=== PATIENT | male | born 1935 | race Caucasian/White ===

== ENCOUNTER → 2017-02-14 | Day surgery (SDC) | payer MEDICARE ==
[~2017-02-14] MED LIST: ACETAMINOPHEN 1000 MG/100 ML VIAL IV ONE; ASPI81 PO; BILB100C PO; BUPIVACAINE/EPINEPHRINE 0.25% PF 30 ML VIAL ONE; LACTATED RINGER'S 1000 ML INJ 1,000 ML ONE; LIDOCAINE 1%/EPINEPHrine 1:100,000 SOLN 20 ML VIAL ONE; LOSA25TA31 PO; LOVA1TAB47 PO; ONDANSETRON HCL 4 MG/2 ML VIAL IV PUSH ONE; PROPOFOL 100 MG/10 ML INJ IV ONE; PROT40TA PO; SODIUM CHLORIDE 0.9% 250 ML ADDBAG IV ONE; TERA2CAP3 PO; VANCOMYCIN 500 MG VIAL ONE; VANCOMYCIN HCL 1000 MG VIAL ONE
--- NOTE | 2017-02-14 09:28 | TN ---
cc: SYLVIA NEUMANN MD DATE OF SURGERY 02/14/2017 PREOPERATIVE DIAGNOSIS Umbilical hernia. POSTOPERATIVE DIAGNOSIS Umbilical hernia. PROCEDURE Primary repair of umbilical hernia. SURGEON Sylvia Neumann MD ASSISTANCE Staff. SPECIMENS None. ESTIMATED BLOOD LOSS 5 mL. COMPLICATIONS None apparent. PROCEDURE IN DETAIL The patient was taken to the operating room, placed in a supine position. General anesthesia was induced. The abdomen was prepped and draped in the usual sterile fashion and a surgical time-out was performed to verify correct patient, procedure and site. The patient received preoperative vancomycin due to PENICILLIN ALLERGY. Local anesthetic was injected into the skin and subcutaneous tissue inferior to the umbilicus and circumferentially around the umbilicus and a curvilinear infraumbilical incision was made. Dissection was carried out through the subcutaneous tissue with electrocautery. The umbilicus was circumferentially dissected using the hemostat. Using Metzenbaum scissors, the umbilicus was elevated off the underlying hernia sac and the hernia sac was reduced through a fascial defect which was approximately 1 cm in diameter. The subcutaneous fat was cleared from the fascia for just less than 1 cm around the defect. The defect was then closed with buried simple interrupted O Ethibond sutures in a transverse fashion along its entire length. I opted not to place mesh as this was about a 1 cm defect. There was good hemostasis in the operative field and the umbilical skin was tacked down with 3-0 Vicryl suture x 2. Deep dermal 3-0 Vicryls were placed and the skin was closed with a running subcuticular 4-0 Monocryl. Mastisol and Steri-Strips were placed and a sterile dressing applied. Abdominal binder was placed. The patient tolerated the procedure well and was taken to the PACU in stable condition. Sylvia Neumann MD JPD/SSB /8:56 AM /9:23 AM
== END | disposition home or self-care (01) ==
LOC: ESDC 06:40
PROVIDERS: ATTEND Surgery
DX: K42.9 Umbilical hernia without obstruction or gangrene (principal)
CPT/HCPCS: 00750; 49585; J0131; J2405; J3010; J3370; J7120

== ENCOUNTER 2018-01-01 11:00 | Inpatient (IN) | payer MEDICARE ==
[~2018-01-01] VITALS: Ht 172.7 cm; Wt 97.7 kg
[2018-02-05] MEDS ORDERED: ATOR40TA16 PO (08:34)
[2018-02-05] MEDS ORDERED: CLOP75TA PO (08:34)
[2018-02-05] MEDS ORDERED: ASPI81TA23 PO (08:34)
[2018-02-05] MEDS ORDERED: REFR0.5D9 EACH EYE (08:35)
[2018-02-05] MEDS ORDERED: FAMO1TAB30 PO (08:35)
[2018-02-05] MEDS ORDERED: DICL75TA PO (08:35)
[2018-02-05] MEDS ORDERED: IPRA0.03 NASAL (08:35)
[2018-02-05] MEDS ORDERED: NITR1SUB3 SL (08:35)
[2018-02-05] MEDS ORDERED: TERA2CAP3 PO (08:35)
[2018-02-05] MEDS ORDERED: PROM6.256 PO (08:35)
--- NOTE | 2018-02-07 14:51 | MH ---
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 HISTORY OF PRESENT ILLNESS: This pleasant 82-year-old male is being admitted today for revision of his right knee to a full total knee. PAST MEDICAL HISTORY: He had the partial knee replacement many years ago. He has a history of hypertension and heart problems, for which he has had a pacemaker. PAST SURGICAL HISTORY: Include partial knee replacements and a left total hip, which occasionally dislocates. CURRENT MEDICATIONS: Terazosin, Plavix, which stopped on 02/07, famotidine, atorvastatin, low dosed aspirin. REVIEW OF SYSTEMS: Noncontributory. FAMILY HISTORY: Noncontributory. SOCIAL HISTORY: Does not smoke. Drinks alcohol occasionally. ALLERGIES: PENICILLIN. PHYSICAL EXAMINATION: GENERAL: We find an 82-year-old male, well developed, well nourished, alert and oriented x 3, complaining of pain in his right knee. VITAL SIGNS: Blood pressure 140/72, pulse 72 and regular, respirations 16, temperature 97.7, pulse oximetry 98% on room air. HEENT: PERRLA, EOMI. Ears, nose, and mouth clear. NECK: Supple. LUNGS: Clear. HEART: Regular rate. ABDOMEN: Soft, positive bowel sounds, nontender. EXTREMITIES: Reveal his right knee to be tender with crepitance on range of motion. He lacks 5 degrees short of full extension, has good flexion. Neurovascularly intact to his toes. IMPRESSION: Failed partial knee replacement, right knee. PLAN: Admission for a revision of his right knee replacement to a full total knee. The patient understands the procedure well and risks involved. Given a prescription for postoperative pain and anticoagulation control in the office. MD RIVAS Alvarez/LEONEL , 02:32 PM , 02:49 PM
[2018-02-12] MEDS ORDERED: LACTATED RINGER'S 1000 ML IV PRN (06:00)
[2018-02-12] MEDS ORDERED: CHLORHEXIDINE GLUCONATE 4% SOLN 120 ML BTL TOPICAL SCH (06:00)
[2018-02-12] MEDS ORDERED: VANCOMYCIN 1 GM/200 ML INJ 200 ML IV SCH (06:00)
[2018-02-12] MEDS ORDERED: POVIDONE IODINE 5% (ANTISEPSIS KIT) 4 APPLICATIONS EACH NARE PRN (06:00)
[2018-02-12] MEDS ORDERED: CHLORHEXIDINE GLUCONATE 2 % 1 PACK (2 CLOTHS) TOPICAL PRN (06:00)
[2018-02-12] MEDS ORDERED: METOPROLOL TARTRATE 25 MG TAB PO PRN (06:00)
[2018-02-12] MEDS ORDERED: SODIUM CHLORID 0.9% 500 ML IV PRN (06:00)
[2018-02-12] MEDS ORDERED: CLINDAMYCIN 900 MG/NS 100 ML IV SCH ×2 (06:00)
[2018-02-12] MEDS ORDERED: FAT EMULSION 20% INJ 0 ML ONE (06:16)
[2018-02-12 06:25] VITALS: PULSE 60
[2018-02-12] MEDS ORDERED: GENTAMICIN SULFATE 80 MG/2 ML VIAL ONE (06:27)
[2018-02-12] MEDS ORDERED: TOBRAMYCIN 1200 MG VIAL (for ortho/sterile core) OTHER ONE (06:27)
[2018-02-12] MEDS ORDERED: CLINDAMYCIN PHOS 900 MG/6 ML VIAL ONE (06:48)
[2018-02-12] MEDS ORDERED: VANCOMYCIN HCL 1000 MG VIAL ONE (06:49)
[2018-02-12] MEDS ORDERED: BUPIVACAINE LIPOSOME PF 1.3% 20 ML VIAL ONE (06:59)
[2018-02-12] MEDS ORDERED: BUPIVACAINE LIPOSO PF 1.3% INJ 20 ML, BUPIVACAINE PF 0.25% INJ 20 ML in SODIUM CHLORIDE... IRRIGATION SCH (07:00)
[2018-02-12] MEDS ORDERED: SODIUM CHLORIDE 0.9% IV SCH ×2 (07:30→10:30)
[2018-02-12] MEDS ORDERED: TRANEXAMIC ACID IV SCH ×2 (07:30→10:30)
[2018-02-12] MEDS ORDERED: Post-op Orders (for Pharmacy) XX ONE (10:15)
[2018-02-12] MEDS ORDERED: diphenhydrAMINE HCL 50 MG/ML VIAL IV PUSH PRN (10:15)
[2018-02-12] MEDS ORDERED: IPRATROPIUM 0.03% NASAL PRN (10:15)
[2018-02-12] MEDS ORDERED: PROMETHAZINE/CODEINE 6.25 MG/10 MG/5 ML CUP PO PRN (10:15)
[2018-02-12] MEDS ORDERED: TEMAZEPAM 15 MG CAP PO PRN (10:15)
[2018-02-12] MEDS ORDERED: ONDANSETRON HCL 4 MG/2 ML VIAL IVP PRN (10:15)
[2018-02-12] MEDS ORDERED: MORPHINE SULFATE 4 MG/ML INJ IV PUSH PRN (10:15)
[2018-02-12] MEDS ORDERED: ACETAMINOPHEN 325 MG TAB PO PRN (10:15)
[2018-02-12] MEDS ORDERED: NALOXONE HCL 0.4 MG/ML AMP IV PUSH PRN (10:15)
[2018-02-12] MEDS ORDERED: ACETAMINOPHEN/HYDROcodone 325 MG/7.5 MG TAB PO PRN (10:15)
[2018-02-12] MEDS ORDERED: ADJUSTABLE COMM1 MIS (10:21)
[2018-02-12] MEDS ORDERED: WALKER WHEELS/F1 MIS (10:21)
[2018-02-12] MEDS ORDERED: CPMMACHINE (10:21)
[2018-02-12] MEDS ORDERED: DO NOT ADM ANY ANTICOAGULANT DRUGS PRN (10:34)
[2018-02-12] MEDS ORDERED: MIDAZOLAM HCL 2 MG/2 ML VIAL ONE (10:38)
[2018-02-12] MEDS: LACTATED RINGER'S 1000 ML INJ 1,000 ML IV SCH ×2 (11:00→22:44)
--- NOTE | 2018-02-12 11:05 | MP ---
cc: Yony Chang MD DATE OF OPERATION: 02/12/2018 DATE OF SURGERY: 02/12/2018 ADMITTING DIAGNOSIS: Failed right total knee arthroplasty. POSTOPERATIVE DIAGNOSIS: Failed right total knee arthroplasty. PROCEDURE PERFORMED: Revision of right knee arthroplasty to a full total knee using Consensus components: Size 5 femur, a 4 tibia, a 12 insert and 2 patella with 2 batches of antibiotic-impregnated cement. SURGEON: Yony Chang MD MYCOLOGY TEACHER: DONITA Locke ANESTHESIA: General intubation and block. PROCEDURE: After successful induction of anesthesia, the patient is placed on the operating room table in the supine position. The knee is prepped and draped in the usual manner. A tourniquet is inflated at the upper thigh and set to 300 mmHg pressure after exsanguination of the lower extremity. A longitudinal incision is made extending from 3 inches proximal to the superior pole of the patella, across the patella in longitudinal fashion, and down past the insertion of the tibial tubercle into the proximal tibia. The incision is carried down through subcutaneous tissue along the medial aspect of the patella and retinaculum, down through the capsule to expose the knee joint. The wound is irrigated copiously with antibiotic solution and Water Pik and the actual components inserted into place using the aforementioned components, Consensus components: Size 5 femur, a 4 tibia, a 12 insert and 2 patella with 2 batches of antibiotic-impregnated cement after removal of an [place] medial unicondylar knee arthroplasty. Once the joint was entered, the fluid sent to the lab for culture and sensitivity and Gram's stain, which revealed a few white cells, no bacteria seen. The old prosthesis was removed using flexible osteotomes and disimpacting it. The rest of the procedure was the same as a total knee. Tourniquet deflated, total tourniquet time being 63 minutes at 300 mmHg pressure. 120 cc of Exparel used around the knee joint for extra pain control and also 1 unit of FLOSEAL for extra bleeding control. The deep fascia was approximated with running #2 Quill, the subcutaneous tissue approximated using interrupted running 2-0 and 4-0 Monocryl suture and a Prineo dressing and knee immobilizer applied. Total tourniquet time 63 minutes. Total blood loss 100 mL. No drain utilized. The patient tolerated the procedure well and left the operating room in satisfactory condition. DONITA Locke, was present during the entire procedure to include the patient positioning and the procedure. The medical necessity of a nurse practitioner medical assistant per diem was indicated in this case due to the surgical complexity of the case itself. During the surgical case, the rn surgical was working at the back table while my neurosurgical physician assistant DONITA was directly assisting me. J. MD RIVAS Luther/SB , 10:46 AM , 11:03 AM
--- NOTE | 2018-02-12 11:21 | HHI.PR ---
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 Surgeon: Yony Chang MD Parts Fabricator(s): Jolene DUCKWORTH Procedure: Right conversion of Partial knee replacement to a full total knee. Revision of Knee Complications: none Specimen(s) removed: Right knee fluid Estimated blood loss: 100cc Anesthesia: General Drains: None IVF Urinary Output (mLs): 0 (NO kay) Tourniquet time (min at mmHg) 63 mins at 300 mmHg Patient to: PACU Patient Condition: Good Implant/Devices: SEE IMPLANT LOG (if applicable) Date/Time of Procedure: SEE SURGICAL CARE RECORD Jolene Ferreira Feb 12, 2018 11:21
--- NOTE | 2018-02-12 11:24 | RADRPT ---
EXAM DATE/TIME: 02/12/2018 11:52 [place] COMPARISON: No previous studies available for comparison. INDICATIONS : Post-op right knee. MEDICAL HISTORY : None. SURGICAL HISTORY : Total knee replacement, right. ENCOUNTER: Initial ACUITY: 1 day PAIN SCORE: 0/10 LOCATION: Right Knee FINDINGS: AP and lateral views of the right knee were obtained and demonstrate the patient status post arthropl asty. The femoral and tibial components are intact and in normal alignment. There are postoperative c hanges involving the patella. Soft tissue swelling and gas is noted. CONCLUSION: Expected postoperative changes status post arthroplasty. Flash Rothman MD on February 12, 2018 at 11:17 Board Certified Radiologist. This report was verified electronically.
[2018-02-12] MEDS ORDERED: GLYCOPYRROLATE 1 MG/5 ML SYRINGE IV PUSH ONE (12:00)
[2018-02-12] MEDS ORDERED: METOPROLOL TARTRATE 5 MG/5 ML VIAL IV ONE (12:00)
[2018-02-12] MEDS ORDERED: LIDOCAINE HCL 1% PF 5 ML SYRINGE OTHER ONE (12:00)
[2018-02-12] MEDS ORDERED: ONDANSETRON HCL 4 MG/2 ML VIAL IV ONE (12:00)
[2018-02-12] MEDS ORDERED: ePHEDrine/NS 25 MG/5 ML SYRINGE IV ONE (12:00)
[2018-02-12] MEDS ORDERED: ROCURONIUM INJ 50 MG/5 ML SYRINGE IV PUSH ONE (12:00)
[2018-02-12] MEDS ORDERED: NEOSTIGMINE 5 MG/5 ML SYRINGE IV PUSH ONE (12:00)
[2018-02-12] MEDS ORDERED: PROPOFOL 200 MG/20 ML AMP IV ONE (12:00)
[2018-02-12 16:00] VITALS: BP 146/76; PULSE 87; RESP 18; TEMP 97.5; O2SAT 93
[2018-02-12] MEDS ORDERED: CLINDAMYCIN INJ 900 MG in SODIUM CHLORIDE 0.9% INJ 100 ML IV SCH (16:00)
[2018-02-12] MEDS: CLINDAMYCIN 900 MG/NS PREMIX 50 ML IV SCH ×2 (16:10→23:50)
[2018-02-12] MEDS: ACETAMINOPHEN/HYDROcodone 325 MG/7.5 MG TAB PO PRN ×2 (17:49→23:50)
[2018-02-12 20:05] VITALS: BP 132/67; PULSE 98; RESP 16; TEMP 100.8; O2SAT 95
[2018-02-12] MEDS: FAMOTIDINE 20 MG TAB PO SCH (20:44)
[2018-02-12] MEDS: TERAZOSIN HCL 1 MG CAP PO SCH (20:44)
[2018-02-12] MEDS: ATORVASTATIN 40 MG TAB PO SCH (20:44)
[2018-02-12] MEDS: CARBOXYMETHYLCELL SOD 0.5% OPTH SOLN 15 ML BTL EACH EYE SCH (20:49)
[2018-02-13 00:15] VITALS: BP 131/66; PULSE 102; RESP 17; TEMP 101.4; O2SAT 93
[2018-02-13 04:15] VITALS: BP 126/68; PULSE 85; RESP 17; TEMP 99.2; O2SAT 92
[2018-02-13] MEDS: ACETAMINOPHEN/HYDROcodone 325 MG/7.5 MG TAB PO PRN ×4 (05:38→20:48)
[2018-02-13 07:30] LABS: HEMATOCRIT 31.4 % (39.0-51.0); HEMOGLOBIN 10.8 GM/DL (13.0-17.0)
[2018-02-13 07:46] VITALS: BP 119/58; PULSE 93; RESP 18; TEMP 97.9; O2SAT 95
--- NOTE | 2018-02-13 09:39 | PD.CONS ---
HPI Service [facility] Hospitalists Consult Requested By Dr. Eric Chang Reason for Consult Medical management Primary Care Physician Temo Morel MD Diagnoses: History of Present Illness Mr. Paul is a pleasant 82 y/o male with HTN, CAD with hx of [place], paroxysmal A. fib, tachy-joslyn syndrome s/p PPM, hx of prostate cancer, BPH, and GERD/ Barretts esophagus. Pt was [place] [facility] [place] for failed right partial knee replacement for conversion to a full total knee replacement with Dr. Chang. The [facility] Hospitalist team was consulted to help with managing the pts chronic medical issues. Pt is seen on POD 1. He had some noted fevers overnight with Tmax 101.4. His remaining vital signs have been stable. Pt is without any specific complaints at the time of examination. Denies any chest pain, cough, SOB, palpitations, abdominal pain, nausea/vomiting, diarrhea. Review of Systems Constitutional: COMPLAINS OF: Fever, DENIES: Chills, Dizziness Eyes: DENIES: Vision loss Ears, nose, mouth, throat: DENIES: Hearing loss Respiratory: DENIES: Cough, Shortness of breath Cardiovascular: DENIES: Chest pain, Palpitations, Lower Extremity Edema Gastrointestinal: DENIES: Abdominal pain, Nausea, Vomiting Genitourinary: DENIES: Hematuria, Dysuria Musculoskeletal: COMPLAINS OF: Joint pain Integumentary: DENIES: Rash Neurologic: DENIES: Headache Psychiatric: DENIES: Confusion Past Family Social History Past Medical History CAD with hx of [place] HTN Hyperlipidemia Paroxysmal A. fib Tachy-joslyn syndrome s/p PPM Allergic rhinitis GERD/Epps's esophagus CKD, stage 2 DJD BPH Hx of prostate cancer s/p XRT 2D echo (01/16/2017): - Estimated EF 60-65% - Mild LVH - Impaired diastolic function - LA mildly dilated - Aortic valve has mild thickening without stenosis or regurgitation - Mild mitral regurg - Mild tricuspid regurg - Estimated PA pressure 19mmHg Past Surgical History Cataract surgery PTCA with stent placement x 3 in 2013 Pacemaker placement in 2013 Left total hip arthroplasty x 2 Left knee arthroplasty in 2009 Right knee arthroplasty in 2010 Prostate biopsy Rotator cuff repair x 2 Reported Medications -Terazosin 2 Mg PO HS -Refresh Plus Unit-Dose 0.5% Opth (Carboxymethylcellulose Sodium 0.5% Opth) 0.5 % Drops 1 Drop EACH EYE BID -Ipratropium Nasal 0.03% 2 [place] NASAL TID PRN -Famotidine 10 Mg PO BID -Promethazine-Codeine Liq 6.25-10 Mg/5 Ml Syrp 10 Ml PO BID PRN -Clopidogrel 75 Mg PO DAILY -Atorvastatin 40 Mg PO HS -Aspirin EC 81 Mg PO DAILY Allergies: Coded Allergies: penicillin G (Verified Allergy, Unknown, 02/12/18) unknown reaction Family History Mother with hx of breast cancer Father with hx of gastric ulcer Brother with hx of AK Social History Denies any alcohol, tobacco or illicit drug use Remote hx of tobacco use Pt is and lives locally Physical Exam Vital Signs Vital Signs Date Time Temp Pulse Resp B/P (MAP) Pulse Ox O2 Delivery O2 Flow Rate FiO2 02/13/18 07:46 97.9 93 18 119/58 (78) 95 02/13/18 04:15 99.2 85 17 126/68 (87) 92 02/13/18 00:15 101.4 102 17 131/66 (87) 93 02/12/18 20:05 100.8 98 16 132/67 (88) 95 02/12/18 16:00 97.5 87 18 146/76 (99) 93 02/12/18 15:15 70 16 95 Room Air 02/12/18 15:00 97.5 75 16 142/71 (94) 95 Room Air 02/12/18 14:00 72 16 140/73 (95) 94 Room Air 02/12/18 13:00 69 16 135/72 (93) 100 Nasal Cannula 2 02/12/18 12:07 15 02/12/18 12:00 68 16 138/75 (96) 99 Nasal Cannula 2 02/12/18 11:45 65 15 135/76 (95) 98 Nasal Cannula 2 02/12/18 11:30 97.7 60 15 131/72 (91) 96 Nasal Cannula 2 02/12/18 11:15 60 15 132/74 (93) 98 Nasal Cannula 3 02/12/18 11:00 60 15 131/70 (90) 97 Nasal Cannula 3 02/12/18 10:45 62 15 122/68 (86) 100 Nasal Cannula 4 02/12/18 10:30 97.8 65 14 119/70 (86) 96 Nasal Cannula 4 Physical Exam GENERAL: This is a well-nourished, well-developed patient, in no apparent distress. HEENT: Atraumatic. Normocephalic. No temporal or scalp tenderness. No scleral icterus. Airway patent. NECK: Trachea midline, supple, nontender. CARDIO: Regular RESP: CTA bilaterally. No wheezes, rales, or rhonchi. ABD: +BS, soft, non-tender, nondistended. EXT: Right knee bandages are c/d/i NEURO: Awake and alert. Motor and sensory grossly within normal limits. Normal speech. Laboratory Laboratory Tests Test 02/13/18 07:06 Hemoglobin 10.8 Hematocrit 31.4 Date/Time Source Procedure Growth Status 02/12/18 08:23 Wound Knee Fungal Smear Pending Received 02/12/18 08:23 Wound Knee Fungal Culture Pending Received Result Diagram: 02/13/18 0706 Imaging Last Impressions Knee X-Ray 02/12/18 1014 Signed Impressions: Service Date/Time: Monday, February 12, 2018 11:52 - CONCLUSION: Expected postoperative changes status post arthroplasty. Flash Rothman MD Assessment and Plan Problem List: (1) Status post revision of total replacement of right knee ICD Codes: Z96.651 - Presence of right artificial knee joint Plan: - Pt is an 82 y/o male with HTN, CAD with hx of [place], paroxysmal A. fib, tachy- joslyn syndrome s/p PPM, hx of prostate cancer, BPH, and GERD/Barretts esophagus. - Pt was admitted [place] [facility] [place]12[place] for failed right partial knee replacement for conversion to a full total knee replacement with Dr. Chang. - He had some noted post-operative fevers overnight with Tmax 101.4. His remaining vital signs have been stable. - Post-op pain control per Ortho - PT daily - IS - Constipation precautions - Supportive care (2) HTN (hypertension) ICD Codes: I10 - Essential (primary) hypertension Status: Chronic Plan: - Home meds continued (3) CAD (coronary artery disease) ICD Codes: I25.10 - Atherosclerotic heart disease of [place] coronary artery without angina pectoris Status: Chronic Plan: - Pt had previous LHC and stenting in 2013 - Stable currently (4) BPH (benign prostatic hyperplasia) ICD Codes: N40.0 - Benign prostatic hyperplasia without lower urinary tract symptoms Status: Chronic Plan: - Home meds continued (5) GERD (gastroesophageal reflux disease) ICD Codes: K21.9 - Gastro-esophageal reflux disease without esophagitis Status: Chronic Plan: - PPI (6) Pacemaker ICD Codes: Z95.0 - Presence of cardiac pacemaker Status: Chronic Plan: - Pt with hx of tachy-joslyn syndrome s/p PPM in 2013 Assessment and Plan Patient examined. Assessment and plan formulated with Carla Flynn PA-C. I agree with the above. Pt doing well. Pt voices NO medical complaints at this time. Carla Flynn Feb 13, 2018 09:39 Salas Ngo DO Feb 13, 2018 13:37
[2018-02-13] MEDS: APIXABAN 2.5 MG TABLET PO SCH ×2 (10:08→20:47)
[2018-02-13] MEDS: ASPIRIN EC 81 MG TABEC PO SCH (10:08)
[2018-02-13] MEDS: FAMOTIDINE 20 MG TAB PO SCH ×2 (10:09→20:47)
[2018-02-13] MEDS: CLINDAMYCIN 900 MG/NS PREMIX 50 ML IV SCH (10:09)
[2018-02-13] MEDS: LACTATED RINGER'S 1000 ML INJ 1,000 ML IV SCH ×2 (11:14→23:44)
--- NOTE | 2018-02-13 11:46 | PD.ORT.PN ---
Subjective Subjective Remarks Pt fairly comfortable. No complaints at present. Objective Vitals Vital Signs Date Time Temp Pulse Resp B/P (MAP) Pulse Ox O2 Delivery O2 Flow Rate FiO2 02/13/18 07:46 97.9 93 18 119/58 (78) 95 02/13/18 04:15 99.2 85 17 126/68 (87) 92 02/13/18 00:15 101.4 102 17 131/66 (87) 93 02/12/18 20:05 100.8 98 16 132/67 (88) 95 02/12/18 16:00 97.5 87 18 146/76 (99) 93 02/12/18 15:15 70 16 95 Room Air 02/12/18 15:00 97.5 75 16 142/71 (94) 95 Room Air 02/12/18 14:00 72 16 140/73 (95) 94 Room Air 02/12/18 13:00 69 16 135/72 (93) 100 Nasal Cannula 2 02/12/18 12:07 15 02/12/18 12:00 68 16 138/75 (96) 99 Nasal Cannula 2 02/12/18 11:45 65 15 135/76 (95) 98 Nasal Cannula 2 I/O 02/12/18 02/12/18 02/12/18 02/13/18 02/13/18 02/13/18 07:00 15:00 23:00 07:00 15:00 23:00 Intake Total 1609.97 ml 830 ml 480 ml Output Total 3100 ml Balance -1490.03 ml 830 ml 480 ml Intake Oral 480 ml 480 ml IV Total 1009.97 ml 350 ml Other 600 ml Output Estimated Blood Loss 100 ml Other 3000 ml # Voids 2 1 # Bowel Movements 0 0 Result Diagram: 02/13/18 0706 Imaging rad Last 48 hours Impressions Knee X-Ray 02/12/18 1014 Signed Impressions: Service Date/Time: Monday, February 12, 2018 11:52 - CONCLUSION: Expected postoperative changes status post arthroplasty. Flash Rothman MD Objective Remarks PT sitting up in chair. NV intact. Assessment & Plan Ortho Post Op Day #: 1 Problem List: Assessment and Plan Pt sitting up in chair. NV intact. Dressing dry and intact. Yony Chang MD Feb 13, 2018 11:46
[2018-02-13 11:47] VITALS: BP 125/60; PULSE 81; RESP 18; TEMP 98.1; O2SAT 95
[2018-02-13 16:00] VITALS: BP 145/67; PULSE 85; RESP 18; TEMP 98.3; O2SAT 95
[2018-02-13] MEDS: CARBOXYMETHYLCELL SOD 0.5% OPTH SOLN 15 ML BTL EACH EYE SCH ×2 (16:47→20:49)
[2018-02-13 19:55] VITALS: BP 152/67; PULSE 90; RESP 17; TEMP 99.9; O2SAT 92
[2018-02-13] MEDS: MULTIVITAMINS/MINERALS THERAPEUTIC TAB PO SCH (20:47)
[2018-02-13] MEDS: ATORVASTATIN 40 MG TAB PO SCH (20:47)
[2018-02-13] MEDS: DOCUSATE SODIUM 100 MG CAP PO SCH (20:47)
[2018-02-13] MEDS: TERAZOSIN HCL 1 MG CAP PO SCH (20:49)
[2018-02-14 00:25] VITALS: BP 133/64; PULSE 88; RESP 17; TEMP 99.8; O2SAT 92
[2018-02-14] MEDS: ACETAMINOPHEN/HYDROcodone 325 MG/7.5 MG TAB PO PRN ×3 (00:50→10:34)
[2018-02-14 04:15] VITALS: TEMP 98.2
[2018-02-14 07:08] LABS: AUTOMATED NEUTROPHIL # 8.3 TH/MM3 (1.8-7.7); BASOPHIL % 0.3 % (0.0-2.0); EOSINOPHIL % 0.4 % (0.0-4.0); HEMATOCRIT 31.3 % (39.0-51.0); HEMOGLOBIN 10.6 GM/DL (13.0-17.0); LYMPH % 7.3 % (9.0-44.0); LYMPHOCYTE # 0.8 TH/MM3 (1.0-4.8); MEAN CELL VOLUME 87.5 FL (80.0-100.0); MEAN CORPUSCULAR HEMOGLOBIN 29.8 PG (27.0-34.0); MEAN CORPUSCULAR HGB CONC 34.1 % (32.0-36.0); MEAN PLATELET VOLUME 7.8 FL (7.0-11.0); MONO % 17.9 % (0.0-8.0); NEUT % 74.1 % (16.0-70.0); PLATELET COUNT 131 TH/MM3 (150-450); RED BLOOD COUNT 3.57 MIL/MM3 (4.50-5.90); RED CELL DISTRIBUTION WIDTH 15.2 % (11.6-17.2); WHITE BLOOD COUNT 11.1 TH/MM3 (4.0-11.0)
[2018-02-14 07:54] VITALS: BP 133/72; PULSE 87; RESP 18; TEMP 98; O2SAT 93
[2018-02-14] MEDS: MAGNESIUM HYDROXIDE SUSP 30 ML CUP PO SCH ×2 (07:58→22:24)
[2018-02-14] MEDS: CARBOXYMETHYLCELL SOD 0.5% OPTH SOLN 15 ML BTL EACH EYE SCH ×2 (07:58→22:23)
[2018-02-14] MEDS: DOCUSATE SODIUM 100 MG CAP PO SCH ×2 (07:58→22:24)
[2018-02-14] MEDS: APIXABAN 2.5 MG TABLET PO SCH ×2 (07:59→22:24)
[2018-02-14] MEDS: MULTIVITAMINS/MINERALS THERAPEUTIC TAB PO SCH ×2 (07:59→22:24)
[2018-02-14] MEDS: FAMOTIDINE 20 MG TAB PO SCH ×2 (07:59→22:24)
[2018-02-14] MEDS: ASPIRIN EC 81 MG TABEC PO SCH (08:00)
--- NOTE | 2018-02-14 08:20 | PD.ORT.PN ---
Subjective Subjective Remarks Pt fairly comfortable. No complaints at present. Objective Vitals Vital Signs Date Time Temp Pulse Resp B/P (MAP) Pulse Ox O2 Delivery O2 Flow Rate FiO2 02/14/18 07:54 98.0 87 18 133/72 (92) 93 02/14/18 04:15 98.2 02/14/18 00:25 99.8 88 17 133/64 (87) 92 02/13/18 19:55 99.9 90 17 152/67 (95) 92 02/13/18 16:00 98.3 85 18 145/67 (93) 95 02/13/18 11:47 98.1 81 18 125/60 (81) 95 I/O 02/13/18 02/13/18 02/13/18 02/14/18 02/14/18 02/14/18 07:00 15:00 23:00 07:00 15:00 23:00 Intake Total 480 ml 520 ml 480 ml Balance 480 ml 520 ml 480 ml Intake Oral 480 ml 520 ml 480 ml # Voids 1 4 1 # Bowel Movements 0 0 0 Result Diagram: 02/14/18 0433 Imaging rad Last 48 hours Impressions Knee X-Ray 02/12/18 1014 Signed Impressions: Service Date/Time: Monday, February 12, 2018 11:52 - CONCLUSION: Expected postoperative changes status post arthroplasty. Flash Rothman MD Objective Remarks PT in bed at present. NV intact. Assessment & Plan Ortho Post Op Day #: 2 Problem List: Assessment and Plan OOB ,PT SNF when bed available. Yony Chang MD Feb 14, 2018 08:20
[2018-02-14] MEDS ORDERED: HYDR-3580 PO (08:22)
--- NOTE | 2018-02-14 08:24 | HHI.DS ---
Discharge Summary Admission Date Feb 12, 2018 at 05:30 Discharge Date: Feb 14, 2018 Admitting Diagnosis Failed right knee arthroplasty. Diagnosis: (1) Status post revision of total replacement of right knee ICD Codes: Z96.651 - Presence of right artificial knee joint Brief History This is a 82 year old male patient CBC/BMP: 02/14/18 0433 Significant Findings Laboratory Tests Test 02/13/18 07:06 02/14/18 04:33 Hemoglobin 10.8 GM/DL (13.0-17.0) 10.6 GM/DL (13.0-17.0) Hematocrit 31.4 % (39.0-51.0) 31.3 % (39.0-51.0) White Blood Count 11.1 TH/MM3 (4.0-11.0) Red Blood Count 3.57 MIL/MM3 (4.50-5.90) Platelet Count 131 TH/MM3 (150-450) Neutrophils (%) (Auto) 74.1 % (16.0-70.0) Lymphocytes (%) (Auto) 7.3 % (9.0-44.0) Monocytes (%) (Auto) 17.9 % (0.0-8.0) Neutrophils # (Auto) 8.3 TH/MM3 (1.8-7.7) Lymphocytes # (Auto) 0.8 TH/MM3 (1.0-4.8) Monocytes # (Auto) 2.0 TH/MM3 (0-0.9) PE at Discharge PT in bed at present. NV intact. Hospital Course PT underwent right total knee revision on day of admission. He received a course of prophylactic IV antibiotics and began anticoagulation therapy within 23 hours of surgery. He progressed with PT and tolerated PO pain meds, food and fluid well. He was discharged on POD #2 to SNF in good condtion with instructions for continuation of care and office follow up. Pt Condition on Discharge: Good Discharge Disposition: Discharge to SNF Discharge Instructions Diet Instructions: As Tolerated, No Restrictions Activities You Can Perform: Full Weight Bearing, Shower Only-No Bath Activities to Avoid: Bathing, Driving Yony Chang MD Feb 14, 2018 08:24
[2018-02-14 08:45] LABS: BICARBONATE 25.4 MEQ/L (21.0-32.0); CALCIUM 8.3 MG/DL (8.5-10.1); CREATININE 1.47 MG/DL (0.60-1.30)
[2018-02-14] MEDS ORDERED: BACITRACIN OINT 0.9 GM PKT TOP PRN (10:15)
[2018-02-14] MEDS: LACTATED RINGER'S 1000 ML INJ 1,000 ML IV SCH ×2 (10:34→22:28)
[2018-02-14 11:34] VITALS: BP 147/69; PULSE 92; RESP 18; TEMP 98.7; O2SAT 94
[2018-02-14 16:14] VITALS: BP 151/71; PULSE 95; RESP 18; TEMP 98.7; O2SAT 94
[2018-02-14] MEDS: TERAZOSIN HCL 1 MG CAP PO SCH (22:24)
[2018-02-14] MEDS: ATORVASTATIN 40 MG TAB PO SCH (22:24)
[2018-02-15] VITALS: BP 152/72; PULSE 105; RESP 19; TEMP 100.3; O2SAT 93
[2018-02-15 06:01] VITALS: BP 144/73; PULSE 85; RESP 18; TEMP 98.4; O2SAT 94
[2018-02-15 07:52] VITALS: BP 156/76; PULSE 86; RESP 18; TEMP 98.7; O2SAT 95
[2018-02-15] MEDS: MAGNESIUM HYDROXIDE SUSP 30 ML CUP PO SCH (09:00)
[2018-02-15] MEDS: CARBOXYMETHYLCELL SOD 0.5% OPTH SOLN 15 ML BTL EACH EYE SCH (09:00)
[2018-02-15] MEDS: DOCUSATE SODIUM 100 MG CAP PO SCH (10:13)
[2018-02-15] MEDS: MULTIVITAMINS/MINERALS THERAPEUTIC TAB PO SCH (10:13)
[2018-02-15] MEDS: ASPIRIN EC 81 MG TABEC PO SCH (10:13)
[2018-02-15] MEDS: FAMOTIDINE 20 MG TAB PO SCH (10:13)
[2018-02-15] MEDS: APIXABAN 2.5 MG TABLET PO SCH (10:13)
[2018-02-15] MEDS ORDERED: APIX2.5T PO (10:45)
--- NOTE | 2018-02-15 12:05 | PD.ORT.PN ---
Subjective Subjective Remarks Pt fairly comfortable. No complaints at present. Objective Vitals Vital Signs Date Time Temp Pulse Resp B/P (MAP) Pulse Ox O2 Delivery O2 Flow Rate FiO2 02/15/18 07:52 98.7 86 18 156/76 (102) 95 02/15/18 06:01 98.4 85 18 144/73 (96) 94 02/15/18 00:00 100.3 105 19 152/72 (98) 93 02/14/18 16:14 98.7 95 18 151/71 (97) 94 I/O 02/14/18 02/14/18 02/14/18 02/15/18 02/15/18 02/15/18 07:00 15:00 23:00 07:00 15:00 23:00 Intake Total 480 ml 1300 ml 360 ml Balance 480 ml 1300 ml 360 ml Intake Oral 480 ml 1300 ml 360 ml # Voids 1 5 2 # Bowel Movements 0 1 0 Result Diagram: 02/14/18 0433 02/14/18 0433 Imaging rad Last 48 hours Impressions Knee X-Ray 02/12/18 1014 Signed Impressions: Service Date/Time: Monday, February 12, 2018 11:52 - CONCLUSION: Expected postoperative changes status post arthroplasty. Flash Rothman MD Objective Remarks PT in bed at present. NV intact. Assessment & Plan Ortho Post Op Day #: 3 Problem List: (1) Status post revision of total replacement of right knee ICD Codes: Z96.651 - Presence of right artificial knee joint Assessment and Plan OOB ,PT SNF when bed available. Yony Chang MD Feb 15, 2018 12:05
[2018-02-15 12:08] VITALS: BP 138/72; PULSE 89; RESP 17; TEMP 98.5; O2SAT 94
== END 2018-02-15 13:25 | DRG 470 ==
LOC: HSDI 02-12 05:30 → N06A 02-12 15:29
PROVIDERS: ADMIT Surgery; ATTEND Surgery
PROC: 0SRC0J9 Replacement of Right Knee Joint with Synthetic Substitute, Cemented, Open Approach (ICD-10-PCS; principal; 2018-02-12 07:37)
DX: T84.092A Other mechanical complication of internal right knee prosthesis, initial encounter (principal); I49.5 Sick sinus syndrome; I48.0 Paroxysmal atrial fibrillation; I12.9 Hypertensive chronic kidney disease with stage 1 through stage 4 chronic kidney disease, or unspecified chronic kidney disease; N18.2 Chronic kidney disease, stage 2 (mild); Y79.2 Prosthetic and other implants, materials and accessory orthopedic devices associated with adverse incidents; I25.10 Atherosclerotic heart disease of native coronary artery without angina pectoris; N40.0 Benign prostatic hyperplasia without lower urinary tract symptoms; K21.9 Gastro-esophageal reflux disease without esophagitis; E78.5 Hyperlipidemia, unspecified; K22.70 Barrett's esophagus without dysplasia; R50.82 Postprocedural fever; Z95.0 Presence of cardiac pacemaker; Z85.46 Personal history of malignant neoplasm of prostate; I25.2 Old myocardial infarction; Z87.891 Personal history of nicotine dependence
CPT/HCPCS: 73560; 80048; 83735; 85014; 85018; 85025; 86850; 86900; 86901; 87015; 87070; 87102; 87116; 87205; 87206; 94150; C1776; C9290; J1580; J2250; J2270; J2405; J2710; J3010; J3370; J7120; L1830

== ENCOUNTER → 2018-02-05 | Outpatient (CLI) | payer MEDICARE ==
[~2018-02-05] MED LIST changes: -ACETAMINOPHEN 1000 MG/100 ML VIAL IV ONE; +ADJUSTABLE COMM1 MIS; +APIX2.5T PO; +ASPI81TA23 PO; +ATOR40TA16 PO; -BUPIVACAINE/EPINEPHRINE 0.25% PF 30 ML VIAL ONE; +CLOP75TA PO; +CPMMACHINE; +DICL75TA PO; +FAMO1TAB30 PO; +HYDR-3580 PO; +IPRA0.03 NASAL; -LACTATED RINGER'S 1000 ML INJ 1,000 ML ONE; -LIDOCAINE 1%/EPINEPHrine 1:100,000 SOLN 20 ML VIAL ONE; +NITR1SUB3 SL; -ONDANSETRON HCL 4 MG/2 ML VIAL IV PUSH ONE; +PROM6.256 PO; -PROPOFOL 100 MG/10 ML INJ IV ONE; +REFR0.5D9 EACH EYE; -SODIUM CHLORIDE 0.9% 250 ML ADDBAG IV ONE; -VANCOMYCIN 500 MG VIAL ONE; -VANCOMYCIN HCL 1000 MG VIAL ONE; +WALKER WHEELS/F1 MIS
[2018-02-05 09:02] LABS: HEMOGLOBIN 13.6 GM/DL (13.0-17.0); MEAN CELL VOLUME 87.5 FL (80.0-100.0); MEAN CORPUSCULAR HEMOGLOBIN 29.9 PG (27.0-34.0); MEAN CORPUSCULAR HGB CONC 34.1 % (32.0-36.0); MEAN PLATELET VOLUME 7.4 FL (7.0-11.0); PLATELET COUNT 190 TH/MM3 (150-450); RED BLOOD COUNT 4.57 MIL/MM3 (4.50-5.90); RED CELL DISTRIBUTION WIDTH 15.2 % (11.6-17.2)
[2018-02-05 09:12] LABS: PROTHROMBIN TIME - PATIENT 9.7 SEC (9.8-11.6)
[2018-02-05 09:48] LABS: ALBUMIN 3.6 GM/DL (3.4-5.0); AST (GOT) 17 U/L (15-37); BICARBONATE 26.7 MEQ/L (21.0-32.0); BLOOD UREA NITROGEN 26 MG/DL (7-18); CALCIUM 8.5 MG/DL (8.5-10.1); CHLORIDE 107 MEQ/L (98-107); CREATININE 1.22 MG/DL (0.60-1.30); GLOMERULAR FILTRATION RATE 57 ML/MIN (>89); GLUCOSE,FASTING 98 MG/DL (74-99); SODIUM (NA) 142 MEQ/L (136-145)
[2018-02-05 09:49] LABS: ALT (GPT) 44 U/L (12-78)
[2018-02-05 09:52] LABS: ALKALINE PHOSPHATASE 120 U/L (45-117); TOTAL BILIRUBIN ADULT 0.4 MG/DL (0.2-1.0); TOTAL PROTEIN 6.8 GM/DL (6.4-8.2)
[2018-02-05 10:35] LABS: BILIRUBIN, URINE NEG (NEG); BLOOD, URINE NEG (NEG); GLUCOSE,URINE NEG (NEG); KETONE, URINE NEG (NEG); NITRITE,URINE NEG (NEG); PH, URINE 5.5 (5.0-8.5); URINE COLOR YELLOW (YELLW/STRAW); URINE LEUKOCYTE ESTERASE NEG (NEG)
== END ==
LOC: CPRE 08:02
PROVIDERS: ATTEND Surgery
DX: Z01.812 Encounter for preprocedural laboratory examination (principal); T84.022A Instability of internal right knee prosthesis, initial encounter
CPT/HCPCS: 36415; 80053; 81001; 85027; 85610; 85730

== ENCOUNTER 2018-06-11 09:14 | Inpatient (IN) ==
--- NOTE | 2018-06-05 14:03 | MH ---
cc: Yony Chang MD DATE OF ADMISSION: 06/11/2018 REASON FOR ADMISSION: Recurrent dislocations, left total hip arthroplasty, now for revision. HISTORY OF PRESENT ILLNESS: An 82-year-old male being admitted today for revision of left total hip arthroplasty, which has become unstable. Other past history, he has a history of heart disease and hypertension. CURRENT MEDICATIONS: 1. Terazosin. 2. Plavix, which stopped 5 days before surgery. 3. Famotidine. 4. Atorvastatin. 5. Aspirin 81 mg. PAST SURGICAL HISTORY: Left total hip done several years ago and knee replacement bilaterally. He has had a pacemaker. REVIEW OF SYSTEMS: Noncontributory. FAMILY HISTORY: Noncontributory. ALLERGIES: HE IS ALLERGIC TO PENICILLIN. PHYSICAL EXAMINATION: GENERAL: We find An 82-year-old male, Well-developed, well-nourished, and oriented x3, complaining of pain and dislocation of his left hip. VITAL SIGNS: Blood pressure 120/72, pulse 68 and regular, respirations 18, temperature 97.9, pulse oximetry 98% on room air. EYES: PERRLA, EOMI. Ears, nose, mouth clear. NECK: Supple. LUNGS: Clear. HEART: Regular rate. ABDOMEN: Soft, positive bowel sounds, nontender. EXTREMITIES: Reveal his left hip to be tender. He is neurovascularly intact to his toes. IMPRESSION: Unstable left total hip arthroplasty. PLAN: Revision left total hip arthroplasty. Today, the patient was given prescription postoperative pain control in the office. Plans on going home after surgical stay in the hospital. MD RIVAS Alvarez/debbie , 01:25 PM , 01:30 PM MARCEL
[2018-06-11] MEDS ORDERED: Clindamycin 900 mg/NS Premix 900 MG/50 ML PIGGYBACK IV.SIG SCH (10:00)
[2018-06-11] MEDS ORDERED: TRANEXAMIC ACID IV.SIG SCH (10:00)
[2018-06-11] MEDS ORDERED: Metoprolol Tartrate 25 MG Tablet PO SCH (10:00)
[2018-06-11] MEDS ORDERED: SODIUM CHLOR 0.9% IV.SIG SCH (10:00)
[2018-06-11] MEDS ORDERED: Chlorhexidine Gluconate 2% 1 Pack (2 Cloths) TOPICAL SCH (10:00)
[2018-06-11] MEDS ORDERED: Sodium Chlor 0.9% Inj 500 ML IV.SIG SCH (10:00)
[2018-06-11] MEDS ORDERED: Carboxymethylcellulose 0.5% Opth Drops 15 ML Bottle EACH EYE PRN (10:15)
[2018-06-11] MEDS ORDERED: Morphine Inj 4 MG/ML Vial IV.PUSH PRN (10:16)
[2018-06-11] MEDS ORDERED: Post-op Orders (for Pharmacy) OTHER STA (10:16)
[2018-06-11] MEDS ORDERED: Bisacodyl 10 MG Supp RECTAL PRN (10:16)
--- NOTE | 2018-06-11 10:26 | P.DCO ---
- Physical Therapy Order: Evaluate and treat, Improve ambulation, Strength and gait training - Home Health Nursing Order: Nursing assessment with vital signs - Case Management Consult Yes - Certification I have seen patient Cesar Paul on 06/11/18. My clinical findings support the need for the requested home health care services because: High risk of falls I certify that my clinical findings support that this patient is homebound because: Post-op weakness, Unsteady gait/balance
[2018-06-11] MEDS ORDERED: Vancomycin Inj 1,000 MG in Sodium Chlor 0.9% Inj 250 ML IV.SIG SCH (11:00)
[2018-06-11] MEDS ORDERED: Neostigmine Inj 5 MG/5 ML Syringe IV.PUSH ONE (12:00)
[2018-06-11] MEDS ORDERED: Lidocaine PF 1% Inj 5 ML Syringe INFILTRATN ONE (12:00)
[2018-06-11] MEDS ORDERED: Sod Chloride 0.9% Inj 1,000 ML IV.SIG ONE (12:00)
[2018-06-11] MEDS ORDERED: Glycopyrrolate Inj 1 MG/5 ML Syringe IV.PUSH ONE (12:00)
[2018-06-11] MEDS ORDERED: fentaNYL Citrate Inj 100 MCG/2 ML Ampul ONE (13:34)
--- NOTE | 2018-06-11 13:38 | MP ---
cc: Yony Chang MD DATE OF OPERATION: 06/11/2018 DATE OF SURGERY: 06/11/2018 PREOPERATIVE DIAGNOSIS: Chronically dislocating left total hip arthroplasty. POSTOPERATIVE DIAGNOSIS: Chronically dislocating left total hip arthroplasty, failed total hip arthroplasty. SURGERY PERFORMED: Revision left total hip arthroplasty. SURGEON: Yony Chang MD SHAG TRUCK DRIVER: DONITA Moore ANESTHESIA: General intubation. PROCEDURES PERFORMED: The patient was brought to the operating room, placed on the operating table in supine position. After successful induction of anesthesia, the patient was placed in the right lateral decubitus position. Left hip and thigh were prepped and draped in usual manner. A posterolateral approach was utilized, 9 inch in length, extending over the greater trochanter posteriorly towards the buttocks, carried down through subcutaneous tissue through the gluteus homer and tensor fascia adan to expose the short external rotators of the hip, which were incised and remains incised in origin. At this point, the hip was noted to be dislocated. The head was removed by disimpaction. The femoral stem found to be intact, bony resorption noted beneath the proximal cm just distal to the lip noted. Next, a C and S was taken and Gram stain, which revealed few white cells, no bacteria seen. It should be noted there was quite a bit of metallosis noted at this point and removed by blunt dissection. The acetabulum identified and found to be intact and very stable and not loose at all. The wound was irrigated copiously with antibiotic solution and water picked. Meticulous hemostasis achieved at this point. Different trials were then tried on the head of the femur to see which was more stable and the most stable was a size Biomet active articulation hip system E128, head size 38, bearing size C, with taper standard neck length, which was then impacted back onto the stem and reduced into the hip to make a tripolar type cup. Full range of motion was appreciated with no instability at this point. Leg lengths appear to be equal. The wound was again irrigated copiously with antibiotic solution and water pic and meticulous hemostasis achieved. The remainder of the capsule approximated with interrupted #1 Vicryl and deep fascia approximated with a running #2 Quill. Subcutaneous tissue approximated using interrupted running 2-0 and 3-0 Monocryl suture and a Prineo dressing, abduction pillow brace, and knee immobilizer. Sciatic nerve was identified and protected throughout the procedure. No drain utilized. ESTIMATED BLOOD LOSS: 200 mL. COUNTS: Sponge and suture count correct. DISPOSITION: The patient tolerated the procedure well and left the operating room in satisfactory condition and DONITA Locke, was present during the entire procedure to include the patient positioning and the procedure. The medical necessity of the nurse practitioner boilermaker's assistant was indicated in this case due to the surgical complexity of case itself. During the surgical case, the surgical lead was working the back table while my regional vice president surgical sales, DONITA, was directly assisting me. J. MD RIVAS Luther/debbie , 01:11 PM , 01:20 PM
--- NOTE | 2018-06-11 14:21 | XR ---
EXAM DATE: 06/11/2018 2:12 PM EDT AGE/SEX: 82 years / Male INDICATIONS: Post op left hip CLINICAL DATA: This is the patient's initial encounter. Patient reports that signs and symptoms have been present for 1 day and indicates a pain score of Nonresponsive. MEDICAL/SURGICAL HISTORY: Non-responsive. . left hip COMPARISON: No prior exams available for comparison. FINDINGS: Total hip arthroplasty is in satisfactory position. The alignment is anatomic. CONCLUSION: Postsurgical changes as above. Electronically signed by: Jerald Moody MD 06/11/2018 2:19 PM EDT
--- NOTE | 2018-06-11 15:35 | P.CONIM ---
History of Present Illness Requesting Physician: Cammy Chang Reason for Consult: history of heart problems Primary Care Provider: Temo Morel MD Family Provider: Temo Morel MD History of Present Illness: Mr. Paul is a pleasant 82 y/o male with HTN, CAD with hx of IN, paroxysmal A. fib, tachy-joslyn syndrome s/p PPM, hx of prostate cancer, BPH, and GERD/ Barretts esophagus. Pt was admitted to [facility] on 06/11/18 for failed left total hip arthroplasty. Patient is S/P revision left total hip arthroplasty with Dr. Chang. The [facility] Hospitalist team was consulted to help with managing the pts chronic medical issues and history of heart problems. Patient seen in PACU. Pt is without any specific complaints at the time of examination. Denies any chest pain, cough, SOB, palpitations, abdominal pain, nausea/vomiting, diarrhea. Past Medical History CAD with hx of IN HTN Hyperlipidemia Paroxysmal A. fib Tachy-joslyn syndrome s/p PPM Allergic rhinitis GERD/Epps's esophagus CKD, stage 2 DJD BPH Hx of prostate cancer s/p XRT 2D echo (01/16/2017): - Estimated EF 60-65% - Mild LVH - Impaired diastolic function - LA mildly dilated - Aortic valve has mild thickening without stenosis or regurgitation - Mild mitral regurg - Mild tricuspid regurg - Estimated PA pressure 19mmHg Past Surgical History Cataract surgery PTCA with stent placement x 3 in 2013 Pacemaker placement in 2013 Left total hip arthroplasty x 2 Left knee arthroplasty in 2009 Right knee arthroplasty in 2010 Prostate biopsy Rotator cuff repair x 2 Family History Mother with hx of breast cancer Father with hx of gastric ulcer Brother with hx of IN Social History Denies any alcohol, tobacco or illicit drug use Remote hx of tobacco use Pt is and lives locally Review of Systems All other systems reviewed negative except as stated in HPI PMFSH - History History Provided By: Patient - Medical History Medical History: Medical History (Last Reviewed 06/11/18 @ 10:43 by Park Adams RN) Arthritis Full dentures GERD (gastroesophageal reflux disease) History of myocardial infarction Pacemaker Prostate cancer Retinal artery occlusion Tinnitus Wears glasses Wears hearing aid in both ears - Surgical History Surgical History: Surgical History (Last Reviewed 06/11/18 @ 10:44 by Park Adams RN) H/O repair of left rotator cuff H/O umbilical hernia repair History of bilateral knee arthroplasty History of coronary artery stent placement History of left hip replacement History of total right knee replacement (TKR) Hx of tonsillectomy Status post cataract extraction of both eyes with insertion of intraocular lens - Tobacco History Second Hand Smoke Exposure: No Smoking Status: Former smoker Tobacco Type: Cigarettes - Alcohol History How Often Do You Have a Drink Containing Alcohol: 2 to 3 times a week - Substance Use History Substance History: No History of Abuse - Travel History Recent Travel in the [place] Within the Last 8 Weeks: No Recent Travel Out of the Country Within the Last 8 Weeks: No Medications and Allergies Active Medications: Active Medications Hydrocodone Bitart/Acetaminophen ([place] 7.5/325) 1 tab PO Q4H PRN PRN Reason: PAIN LESS THAN 5 ON SCALE Hydrocodone Bitart/Acetaminophen ([place] 7.5/325) 2 tab PO Q6H PRN PRN Reason: PAIN SCALE 5 TO 10 Al Hydroxide/Mg Hydroxide (Milk Of Magnesia Liq) 30 ml PO BID PRN PRN Reason: Mild Constipation Artificial Tears (Refresh Tears 0.5% Opth Drops) 1 drop EACH EYE Q6H PRN PRN Reason: DRY EYES Aspirin (Ecotrin) 81 mg PO DAILY [facility] Atorvastatin Calcium (Lipitor) 40 mg PO HS [facility] Bisacodyl (Dulcolax Supp) 10 mg RECTAL DAILY PRN PRN Reason: SEVERE CONSITIPATION Chlorhexidine Gluconate (Chlorhexidine 2% Cloth) 3 pack TOPICAL ORACLE EBS CONSULTANT [facility] Stop: 06/14/18 09:47 Clindamycin Phosphate (Cleocin 900 Mg/Dex Premix) 900 mg IV.SIG Q8H [facility]; Protocol Stop: 06/12/18 12:01 Famotidine (Pepcid) 10 mg PO DAILY [facility] Lactated Ringer's (Lr 1000 Ml Inj) 1,000 mls @ 30 mls/hr IV.SIG .Q24H [facility] Stop: 06/14/18 09:47 Last Admin: 06/11/18 10:38 Dose: 30 mls/hr Sodium Chloride (Ns Inj) 500 mls @ 30 mls/hr IV.SIG .Q10H [facility] Stop: 06/14/18 09:47 Clindamycin/Sodium Chloride (Cleocin 900 Mg/Ns Premix) 900 mg in 50 mls @ 100 mls/hr IV.SIG [employer]ACLE EBS CONSULTANT [facility] Stop: 06/15/18 09:59 Last Admin: 06/11/18 11:39 Dose: 100 mls/hr Tranexamic Acid 975 mg/ Sodium (Chloride) 109.75 mls @ 200 mls/hr IV.SIG ONCE [facility] Stop: 06/12/18 16:00 Last Infusion: 06/11/18 11:30 Dose: Infused Vancomycin HCl 1,000 mg/ (Sodium Chloride) 250 mls @ 250 mls/hr IV.SIG [employer]ACLE EBS CONSULTANT [facility] Stop: 06/14/18 10:59 Last Infusion: 06/11/18 12:41 Dose: Infused Lactated Ringer's (Lr 1000 Ml Inj) 1,000 mls @ 80 mls/hr IV.CONT .[id number] [facility] Last Admin: 06/11/18 13:30 Dose: 80 mls/hr Lactulose (Lactulose Liq) 30 ml PO DAILY PRN PRN Reason: SEVERE CONSITIPATION Metoprolol Tartrate (Lopressor) 25 mg PO [employer]LE EBS CONSULTANT [facility] Stop: 06/14/18 09:47 Miscellaneous (Pill Splitter) 1 each OTHER UNSCH PRN PRN Reason: SEE LABEL COMMENTS Miscellaneous Information ([facility] Information) 1 each OTHER UNSCH PRN PRN Reason: SEE LABEL COMMENTS Stop: 06/12/18 14:40 Morphine Sulfate (Morphine Inj) 2 mg IV.PUSH Q3H PRN PRN Reason: BREAKTHROUGH PAIN Ondansetron HCl (Zofran Odt) 4 mg PO Q6H PRN PRN Reason: NAUSEA OR VOMITING Patient Own Medication( Ipratroprium [place] Nasal [place] 0.03%) 0 each NASAL TID [facility] Povidone Iodine (Betadine 5% Antisepsis Kit) 1 applicatio EACH NARE [employer]ACLE EBS CONSULTANT [facility] Stop: 06/14/18 09:47 Povidone Iodine (Betadine 7.5% Scrub) 1 applicatio TOPICAL ONCE [facility] Stop: 06/15/18 09:59 Senna/Docusate Sodium (Jennifer-Colace) 1 tab PO BID [facility] Sennosides (Senokot) 17.2 mg PO BID PRN PRN Reason: Moderate Constipation Sodium Chloride (Ns Flush) 2 ml IV.FLUSH BID [facility] Sodium Chloride (Ns Flush) 2 ml IV.FLUSH PRN PRN PRN Reason: FLUSH AFTER USING IV ACCESS Terazosin HCl (Hytrin) 2 mg PO [facility] Allergies Allergy/AdvReac Type Severity Reaction Status Date / Time penicillin G Allergy Severe unknown Verified 06/04/18 10:00 Home Medications Medication Instructions Recorded Confirmed Type aspirin [Adult Low Dose Aspirin] 81 mg PO DAILY 06/04/18 06/11/18 History atorvastatin 40 mg PO HS 06/04/18 06/11/18 History carboxymethylcellulose sodium 1 drp OPHTHALMIC (EYE) Q4-6H PRN 06/04/18 History [Refresh Tears] clopidogrel 75 mg PO DAILY 06/04/18 06/11/18 History famotidine 10 mg PO DAILY 06/04/18 06/11/18 History ipratropium bromide 2 spray INTRANASAL TID PRN 06/04/18 06/11/18 History terazosin 2 mg PO HS 06/04/18 06/11/18 History Exam Vital signs: Vital Signs 06/11/18 10:13 06/11/18 13:25 06/11/18 13:30 Temperature 97.8 F 96.4 F L Pulse Rate 62 62 62 Respiratory Rate 17 24 Blood Pressure 164/81 H 148/81 H 127/68 Pulse Oximetry 97 97 97 06/11/18 13:45 06/11/18 14:00 06/11/18 14:15 Temperature Pulse Rate 61 60 60 Respiratory Rate 15 16 13 Blood Pressure 149/78 H 151/86 H 151/84 H Pulse Oximetry 94 L 98 98 06/11/18 14:30 06/11/18 14:45 Temperature Pulse Rate 60 60 Respiratory Rate 14 16 Blood Pressure 151/83 H 144/77 H Pulse Oximetry 97 97 Intake & Output 06/10/18 06/11/18 06/11/18 18:59 06:59 18:59 Intake Total 359.75 / 359.75 Balance 359.75 / 359.75 Weight 97.5 kg Intake: IV 359.75 / 359.75 Cyklokapron Inj 975 MG In NS 109.75 / 109.75 Inj 100 ML @ 200 mls/hr IV.SIG ONCE [facility] Rx#:[id number] Vancomycin Inj 1,000 MG In NS 250 / 250 Inj 250 ML @ 250 mls/hr IV.SIG [employer]LE E[employer] CONSULTANT [facility] Rx#:[id number] Other: Weight On Admission 97.5 kg Narrative: GENERAL: This is a well-nourished, well-developed patient, in no apparent distress. HEENT: Atraumatic. Normocephalic. No temporal or scalp tenderness. No scleral icterus. Airway patent. NECK: Trachea midline, supple, nontender. CARDIO: Regular RESP: CTA bilaterally. No wheezes, rales, or rhonchi. ABD: +BS, soft, non-tender, nondistended. EXT: left hip bandages are c/d/i NEURO: drowsy post- anesthesia but able to awake easily. Motor and sensory grossly within normal limits. Normal speech. Results - Labs Labs: Laboratory Results - last 24 hr 06/11/18 10:15 Blood Type O Positive Blood Type Recheck Not needed Antibody Screen Negative - Imaging Impressions Hip X-Ray 06/11/18 10:16 CONCLUSION: Postsurgical changes as above. Assessment and Plan - Assessment (1) Failed total hip arthroplasty with dislocation Code(s): T84.028A - Dislocation of other internal joint prosthesis, initial encounter; Z96.649 - Presence of unspecified artificial hip joint Status: Acute Plan: Failed total hip arthroplasty with dislocation - Pt is an 82 y/o male with HTN, CAD with hx of IN, paroxysmal A. fib, tachy- joslyn syndrome s/p PPM, hx of prostate cancer, BPH, and GERD/Barretts esophagus. - S/P Revision left total hip arthroplasty (06/11/18) with Dr. Chang. - Post-op pain control per Ortho - DVT prophylaxis per Orthopedic surgery - PT daily - IS - Constipation precautions - Supportive care HTN (hypertension) - Home meds continued CAD (coronary artery disease) - Pt had previous LHC and stenting in 2013 - Stable currently BPH (benign prostatic hyperplasia) - Home meds continued GERD (gastroesophageal reflux disease) - PPI Pacemaker - Pt with hx of tachy-joslyn syndrome s/p PPM in 2013
[2018-06-11] MEDS ORDERED: Clindamycin/Dextrose 900 MG/50 ML IVPB IV.SIG SCH (20:00)
[2018-06-11] MEDS: Senna/Docusate Sodium 8.6/50 MG Tablet PO SCH (22:24)
[2018-06-11] MEDS: Clindamycin 900 mg/NS Premix 900 MG/50 ML PIGGYBACK IV.SIG SCH (22:41)
[2018-06-12] MEDS: Clindamycin 900 mg/NS Premix 900 MG/50 ML PIGGYBACK IV.SIG SCH ×2 (03:19→14:24)
--- NOTE | 2018-06-12 08:03 | P.PNOP ---
Subjective Interval history: Patient is comfortable with no pain. He states when he walked last night he was a little dizzy. He is not having any pain or problems now. Physical Exam Vital signs: Vital Signs 06/11/18 10:13 06/11/18 13:25 06/11/18 13:30 Temperature 97.8 F 96.4 F L Pulse Rate 62 62 62 Respiratory Rate 17 24 Blood Pressure 164/81 H 148/81 H 127/68 Pulse Oximetry 97 97 97 06/11/18 13:45 06/11/18 14:00 06/11/18 14:15 Temperature Pulse Rate 61 60 60 Respiratory Rate 15 16 13 Blood Pressure 149/78 H 151/86 H 151/84 H Pulse Oximetry 93 L 98 98 06/11/18 14:30 06/11/18 14:45 06/11/18 15:00 Temperature 97.3 F L Pulse Rate 60 60 60 Respiratory Rate 14 16 15 Blood Pressure 151/83 H 144/77 H 131/77 Pulse Oximetry 97 97 99 06/11/18 15:30 06/11/18 16:00 06/11/18 16:30 Temperature 97.6 F Pulse Rate 60 60 60 Respiratory Rate 23 23 19 Blood Pressure 135/78 130/73 134/78 Pulse Oximetry 97 97 94 L 06/11/18 20:00 06/12/18 00:00 06/12/18 04:00 Temperature 97.3 F L 98.2 F 98.1 F Pulse Rate 78 77 73 Respiratory Rate 19 17 18 Blood Pressure 119/65 135/76 Pulse Oximetry 97 96 96 Intake & Output 06/11/18 06/12/18 06/12/18 18:59 06:59 18:59 Intake Total 359.75 / 359.75 1100 / 1100 Balance 359.75 / 359.75 1100 / 1100 Weight 97.069 kg 97.2 kg Intake: IV 359.75 / 359.75 1100 / 1100 LR 1000 mL Inj 1,000 ML @ 80 1000 / 1000 mls/hr IV.CONT .[id number] [facility] Rx# :[id number] Cleocin 900 mg/NS Premix 900 mg 100 / 100 In 50 ml @ 100 mls/hr IV.SIG Q8H [facility] Rx#:[id number] Cyklokapron Inj 975 MG In NS 109.75 / 109.75 Inj 100 ML @ 200 mls/hr IV.SIG ONCE [facility] Rx#:[id number] Vancomycin Inj 1,000 MG In NS 250 / 250 Inj 250 ML @ 250 mls/hr IV.SIG MAINTENANCE TECHNICIAN 3RD SHIFT [facility] Rx#:[id number] Other: # Voids 3 Date of Last Bowel Movement 06/11/18 Weight On Admission 97.5 kg - Constitutional no acute distress Results - Labs Laboratory Results - last 24 hr 06/11/18 10:15 Blood Type O Positive Blood Type Recheck Not needed Antibody Screen Negative Microbiology 06/11/18 11:39 Other Fungal Smear - Final No fungal elements seen 06/11/18 11:39 Wound - Hip Gram Stain - Final - Imaging Impressions Hip X-Ray 06/11/18 10:16 CONCLUSION: Postsurgical changes as above. Assessment and Plan - Problem List (1) Status post revision of total hip replacement Code(s): Z96.649 - Presence of unspecified artificial hip joint Status: Acute - Attending Attestation Attending Attestation: Dressing is dry and intact. He is neurovascularly intact to his toes. He has no calf tenderness. Plan is for the patient to be discharged later today after physical therapy with instructions for home health care and physical therapy. He he is being discharged in good condition.
[2018-06-12] MEDS ORDERED: Famotidine 20 MG Tablet PO SCH (09:00)
[2018-06-12] MEDS ORDERED: IPRATROPIUM 0.03% NASAL SCH (09:00)
[2018-06-12] MEDS: Senna/Docusate Sodium 8.6/50 MG Tablet PO SCH (09:03)
[2018-06-12 09:05] LABS: Hematocrit 30.8 % (39.0-51.0); Hemoglobin 10.7 gm/dL (13.0-17.0)
== END 2018-06-12 15:28 | disposition home health service (06) ==
LOC: HSDC 09:14 → HSDI 10:16 → EDSTATUS 12:00 → N06 16:49
PROVIDERS: ADMIT Surgery; ATTEND Surgery